=== PATIENT | male | born 1960 | race Caucasian/White ===

== ENCOUNTER 2021-03-21 20:06 | Emergency (ER) | payer OTHER, SELFPAY ==
[2021-03-21 20:29] VITALS: BP 144/85; PULSE 72; RESP 17; TEMP 38.8; O2SAT 96; BMI 31.9
--- NOTE | 2021-03-22 00:35 | XRR_ITS ---
PROCEDURE INFORMATION: Exam: XR Chest Exam date and time: 03/22/2021 12:35 AM Age: 61 years old Clinical indication: Cough and fever; Additional info: Fever cough TECHNIQUE: Imaging protocol: XR of the chest. Views: 1 view. COMPARISON: [facility] Chest 2 views 01/08/2017 7:56 AM FINDINGS: Lungs: Unremarkable. No consolidation. Pleural spaces: Unremarkable. No pleural effusion. No pneumothorax. Heart/Mediastinum: Unremarkable. No cardiomegaly. Bones/joints: Unremarkable. XR/XR chest 1V portable [id number] IMPRESSION: No acute findings.
--- NOTE | 2021-03-22 00:43 | ED_ITS ---
HPI - SOB/Dyspnea General: Chief Complaint: Shortness of Breath/Dyspnea Stated Complaint: Fever\Shortness\Loss of Taste Time Seen by Provider: 03/22/21 00:36 History of Present Illness: HPI Narrative: 61-year-old male patient comes in with nasal discharge, bad taste in his mouth, fatigue, and fever with body aches. Patient reports 2 weeks ago he got overheated and since then he has been unwell. Patient spouse about a week after he was ill became ill but has gotten better. Patient continues to feel ill today. Patient thinks that he just is not eating enough and drinking enough because of the bad taste he has in his mouth. Patient appears mildly unwell but not toxic. Patient denies any rash or nausea vomiting or constipation. Patient reports very poor appetite because everything tastes bad. Patient does continue to run a fever at times. Associated symptoms: Reports fever(s) Review of Systems General: Reports: 10 or more systems reviewed and unremarkable except in HPI and below Const: Reports: fever(s) and malaise ENMT: Reports: other (Change in taste) Resp: Reports: dyspnea Physical Exam Const: COMMON NORMALS: no acute distress and patient oriented x3 GENERAL APPEARANCE: cooperative HENMT: COMMON NORMALS: normocephalic, TM's normal bilaterally and Normal external nose present HEAD & SCALP: normal to inspection and normocephalic NOSE: Normal external nose present TYMPANIC MEMBRANE: TM's normal bilaterally MOUTH: Normal oral and palatal mucosa present THROAT: posterior oropharynx normal Eye: GENERAL EYE: appearance normal, both eyes and all related structures Neck/C-Spine: COMMON NORMALS: full ROM Lymph: LYMPHATIC: no lymphadenopathy noted Chest: COMMONS NORMALS: normal inspection of the chest Resp: COMMON NORMALS: normal respiratory effort EFFORT & INSPECTION: Yes able to speak in complete sentences Cardio: COMMON NORMALS: regular rate and regular rhythm RATE: regular rate RHYTHM: regular rhythm GI: COMMON NORMALS: non-tender : COMMON NORMALS: Yes no CVA tenderness BLADDER/KIDNEY EXAM: Yes no CVA tenderness Back/Pelvis: COMMON NORMALS: no CVA tenderness and thoracic and lumbar spine normal to inspection Extremity: COMMON NORMALS: normal to inspection Neuro: COMMON NORMALS: patient oriented x3 and moves all extremities Psych: COMMON NORMALS: mental status grossly normal and cooperative Skin: COMMON NORMALS: no rashes or lesions noted GENERAL SKIN EXAM: no rashes or lesions noted Course Vital Signs: Vital signs: Vital Signs Temperature 101.9 F H 03/21/21 20:29 Pulse Rate 72 03/21/21 20:29 Respiratory Rate 17 03/21/21 20:29 Blood Pressure 144/85 03/21/21 20:29 Pulse Oximetry 96 03/21/21 20:29 MDM - SOB/Dyspnea MDM Narrative: Medical decision making narrative: 61-year-old male patient comes in today with feeling poorly for the last 2 weeks after becoming overheated. Patient states that he just has not been able to recover from it and also reports a bad taste in his mouth. States he is unable to drink or eat due to this foul taste when he gets from everything except dark chocolate. On exam respirations are even lungs are clear to auscultation. Abdomen is soft nontender. Skin is warm and dry. Vital signs are normal except for elevated temperature of 101.9. Differential diagnosis includes but not limited to pneumonia, urinary tract infection, sepsis, tickborne illness, dehydration. Blood count was normal. CMP noted some elevation in creatinine at 1.4. Patient also had some elevation in his liver enzymes AST is and ALTs. Urinalysis was positive for red blood cells, white blood cells, and squamous cells. I suspect patient may have a upper respiratory infection as his had one last week, along with some dehydration. I cannot rule out a tickborne illness at this time though. Patient does not recall a tick bite in the last couple of weeks though. Patient was hydrated with 1 L of lactated Ringer's and had improvement so we repeated another liter. Patient was also given 1 g of Rocephin IV and will be started on doxycycline for coverage of upper respiratory infection and possible tickborne illness. Tick panel was sent. And blood cultures were sent. Patient did seem improved after IV fluids I reviewed that he had a make sure he drink plenty of water and electrolyte solution. Patient reported understanding agreed to plan and need for follow-up with primary care in 3 days for recheck. Lab Data: Labs: Lab Results 03/22/21 03/22/21 03/22/21 Range/Units 01:30 01:30 01:30 WBC 4.7 (4.0-10.0) 10^3/ uL RBC 5.21 (4.1-5.3) 10^6/u L Hgb 16.6 (11.7-16.6) g/dL Hct 48.2 (42.0-52.0) % MCV 92.5 (80-94) fL MCH 31.9 (28.0-34.0) pg MCHC 34.4 (30.0-36.0) g/dL RDW 12.2 (12.1-15.1) % Plt Count 271 (130-400) 10^3/c mm MPV 10.2 (7.4-10.4) fL Neut % (Auto) 74.8 % Lymph % (Auto) 18.6 % Collingsworth % (Auto) 5.1 % Eos % (Auto) 0.0 % Baso % (Auto) 1.1 % Neut # (Auto) 3.54 (1.8-7.7) 10^3/u L Lymph # (Auto) 0.9 (0.8-4.8) 10^3/u L Collingsworth # (Auto) 0.2 (0.2-0.9) 10^3/u L Eos # (Auto) 0.0 (0.0-0.8) 10^3/u L Baso # (Auto) 0.1 (0.0-0.1) 10^3/u L Nucleated RBC % (a uto) 0 % Nucleated RBCs # 0.0 /100WBC Sodium 138 (136-145) mmol/L Potassium 3.5 (3.5-5.1) mmol/L Chloride 98 (98-107) mmol/L Carbon Dioxide 24 (22-29) mmol/L Anion Gap 19.5 H (5-19) BUN 17 (8-23) mg/dL Creatinine 1.4 H (0.7-1.2) mg/dL GFR Calculation 51.4 L (90-130) mL/min Glucose 119 H (65-115) mg/dL Calculated Osmolal ity 289 (285-295) mOsm/k g Lactic Acid 1.9 (0.5-2.2) mmol/L Calcium 9.3 (8.5-10.5) mg/dL Total Bilirubin 0.5 (0.15-1.2) mg/dL AST 248 H (0-40) U/L ALT 292 H (0-41) U/L Alkaline Phosphata se 123 (40-130) IU/L Total Protein 7.8 (6.6-8.7) g/dL Albumin 4.3 (3.5-5.2) g/dL Globulin 3.5 (1.3-4.6) g/dL Urine Color (Yellow) Urine Appearance (CLEAR) Urine pH (5-7) Ur Specific Gravit y (1.005-1.030) Urine Protein (Negative) Urine Glucose (UA) (Normal) Urine Ketones (Negative) Urine Blood (Negative) Urine Nitrate (Negative) Urine Bilirubin (Negative) Urine Urobilinogen (Negative) mg/dL Ur Leukocyte Kari ase (Negative) Urine RBC (0-2) /hpf Urine WBC (0-5) /hpf Ur Squamous Epith Cells (0-5) /hpf Amorphous Sediment Urine Bacteria (NONE) /hpf Urine Mucus /hpf Influenza Type A A g (Negative) Influenza Type B A g (Negative) SARS-CoV-2 Ag (Rap id) (Negative) Group A Strep Rapi d (Negative) 03/22/21 03/22/21 03/22/21 Range/Units 01:45 01:45 01:45 WBC (4.0-10.0) 10^3/ uL RBC (4.1-5.3) 10^6/u L Hgb (11.7-16.6) g/dL Hct (42.0-52.0) % MCV (80-94) fL MCH (28.0-34.0) pg MCHC (30.0-36.0) g/dL RDW (12.1-15.1) % Plt Count (130-400) 10^3/c mm MPV (7.4-10.4) fL Neut % (Auto) % Lymph % (Auto) % Collingsworth % (Auto) % Eos % (Auto) % Baso % (Auto) % Neut # (Auto) (1.8-7.7) 10^3/u L Lymph # (Auto) (0.8-4.8) 10^3/u L Collingsworth # (Auto) (0.2-0.9) 10^3/u L Eos # (Auto) (0.0-0.8) 10^3/u L Baso # (Auto) (0.0-0.1) 10^3/u L Nucleated RBC % (a uto) % Nucleated RBCs # /100WBC Sodium (136-145) mmol/L Potassium (3.5-5.1) mmol/L Chloride (98-107) mmol/L Carbon Dioxide (22-29) mmol/L Anion Gap (5-19) BUN (8-23) mg/dL Creatinine (0.7-1.2) mg/dL GFR Calculation (90-130) mL/min Glucose (65-115) mg/dL Calculated Osmolal ity (285-295) mOsm/k g Lactic Acid (0.5-2.2) mmol/L Calcium (8.5-10.5) mg/dL Total Bilirubin (0.15-1.2) mg/dL AST (0-40) U/L ALT (0-41) U/L Alkaline Phosphata se (40-130) IU/L Total Protein (6.6-8.7) g/dL Albumin (3.5-5.2) g/dL Globulin (1.3-4.6) g/dL Urine Color Yellow (Yellow) Urine Appearance Clear (CLEAR) Urine pH 5 (5-7) Ur Specific Gravit y 1.020 (1.005-1.030) Urine Protein Trace (Negative) Urine Glucose (UA) Norm (Normal) Urine Ketones Negative (Negative) Urine Blood 2+ H (Negative) Urine Nitrate Negative (Negative) Urine Bilirubin Neg (Negative) Urine Urobilinogen Norm (Negative) mg/dL Ur Leukocyte Kari ase Negative (Negative) Urine RBC 0-4 H (0-2) /hpf Urine WBC 0-4 H (0-5) /hpf Ur Squamous Epith Cells 0-4 H (0-5) /hpf Amorphous Sediment Not Reportable Urine Bacteria Trace (NONE) /hpf Urine Mucus 4+ /hpf Influenza Type A A g Negative (Negative) Influenza Type B A g Negative (Negative) SARS-CoV-2 Ag (Rap id) (Negative) Group A Strep Rapi d Negative (Negative) 03/22/21 Range/Units 01:45 WBC (4.0-10.0) 10^3/ uL RBC (4.1-5.3) 10^6/u L Hgb (11.7-16.6) g/dL Hct (42.0-52.0) % MCV (80-94) fL MCH (28.0-34.0) pg MCHC (30.0-36.0) g/dL RDW (12.1-15.1) % Plt Count (130-400) 10^3/c mm MPV (7.4-10.4) fL Neut % (Auto) % Lymph % (Auto) % Collingsworth % (Auto) % Eos % (Auto) % Baso % (Auto) % Neut # (Auto) (1.8-7.7) 10^3/u L Lymph # (Auto) (0.8-4.8) 10^3/u L Collingsworth # (Auto) (0.2-0.9) 10^3/u L Eos # (Auto) (0.0-0.8) 10^3/u L Baso # (Auto) (0.0-0.1) 10^3/u L Nucleated RBC % (a uto) % Nucleated RBCs # /100WBC Sodium (136-145) mmol/L Potassium (3.5-5.1) mmol/L Chloride (98-107) mmol/L Carbon Dioxide (22-29) mmol/L Anion Gap (5-19) BUN (8-23) mg/dL Creatinine (0.7-1.2) mg/dL GFR Calculation (90-130) mL/min Glucose (65-115) mg/dL Calculated Osmolal ity (285-295) mOsm/k g Lactic Acid (0.5-2.2) mmol/L Calcium (8.5-10.5) mg/dL Total Bilirubin (0.15-1.2) mg/dL AST (0-40) U/L ALT (0-41) U/L Alkaline Phosphata se (40-130) IU/L Total Protein (6.6-8.7) g/dL Albumin (3.5-5.2) g/dL Globulin (1.3-4.6) g/dL Urine Color (Yellow) Urine Appearance (CLEAR) Urine pH (5-7) Ur Specific Gravit y (1.005-1.030) Urine Protein (Negative) Urine Glucose (UA) (Normal) Urine Ketones (Negative) Urine Blood (Negative) Urine Nitrate (Negative) Urine Bilirubin (Negative) Urine Urobilinogen (Negative) mg/dL Ur Leukocyte Kari ase (Negative) Urine RBC (0-2) /hpf Urine WBC (0-5) /hpf Ur Squamous Epith Cells (0-5) /hpf Amorphous Sediment Urine Bacteria (NONE) /hpf Urine Mucus /hpf Influenza Type A A g (Negative) Influenza Type B A g (Negative) SARS-CoV-2 Ag (Rap id) Negative (Negative) Group A Strep Rapi d (Negative) Discharge Plan Discharge Patient Disposition: Home Clinical Impression: Dehydration, URI, acute Condition: Stable Prescriptions: New doxycycline monohydrate 100 mg capsule 100 mg PO Q12H 10 Days Qty: 20 RF: 0 Discharge Orders: Discharge ED (Routine); Ordered 03/22/21 Ordered By: Sebastián Vee Referrals: Napoleon Keyes DO [Family Provider] - Discharge Diet: Usual diet Discharge Activity: Increase activity as tolerated Patient Instructions: Dehydration (ED), Opioid Safety Activity Restrictions/Additional Instructions: Home and rest. Drink plenty of fluids. Take antibiotic as directed for the next 7 days. Follow-up with primary care in 3 days for recheck of blood work. Return to the emergency department for worsening symptoms or new concerns. Coding Level of Care Code ED Machine Biller for Randy Fwd Exam Comprehensive
[2021-03-22] MEDS: lactated ringers 1,000 ML 999 ML IV ×2 (01:42→03:42)
[2021-03-22 01:48] LABS: Basophils # 0.1 10^3/uL (0.0-0.1); Basophils % 1.1 %; Hematocrit 48.2 % (42.0-52.0); Hemoglobin 16.6 g/dL (11.7-16.6); Lymphocytes # 0.9 10^3/uL (0.8-4.8); Lymphocytes % 18.6 %; Mean Corpuscular HGB Conc 34.4 g/dL (30.0-36.0); Mean Corpuscular Hemoglobin 31.9 pg (28.0-34.0); Mean Corpuscular Volume 92.5 fL (80-94); Mean Platelet Volume 10.2 fL (7.4-10.4); Monocytes # 0.2 10^3/uL (0.2-0.9); Monocytes % 5.1 %; Neutrophils # 3.54 10^3/uL (1.8-7.7); Neutrophils % 74.8 %; Nucleated Red Blood Cells % 0 %; Platelet Count 271 10^3/cmm (130-400); Red Blood Count 5.21 10^6/uL (4.1-5.3); Red Cell Distribution Width 12.2 % (12.1-15.1); White Blood Count 4.7 10^3/uL (4.0-10.0)
[2021-03-22 02:10] LABS: Add Urine Microscopic? YES; Bilirubin Urine Neg (Negative); Blood Urine 2+ (Negative); Glucose Urine UA Norm (Normal); Ketones Urine Negative (Negative); Leukocyte Esterase Urine Negative (Negative); Nitrate Urine Negative (Negative); Protein Urine Trace (Negative); Urine Appearance Clear (CLEAR); Urine Color Yellow (Yellow); Urobilinogen Urine Norm (Negative); pH Urine 5 (5-7)
[2021-03-22 02:12] LABS: Rapid Strep A Test Negative (Negative)
[2021-03-22 02:22] LABS: Add Urine Culture? No; Bacteria Urine TRACE /hpf; Mucus Urine 4+ /hpf; RBC Urine 0-4 /hpf (0-2); Squamous Epithelial Cell Urine 0-4 /hpf (0-5); WBC Urine 0-4 /hpf (0-5)
[2021-03-22 02:24] LABS: Influenza A by IFA Negative (Negative); Influenza B by IFA Negative (Negative); SARS Covid-2 Antigen Negative (Negative)
[2021-03-22 03:04] LABS: Lactic Sepsis W/Reflex 1.9 mmol/L (0.5-2.2)
[2021-03-22 03:05] LABS: Alanine Aminotransferase 292 U/L (0-41); Albumin Level 4.3 g/dL (3.5-5.2); Alkaline Phosphatase 123 IU/L (40-130); Anion Gap 19.5 (5-19); Aspartate Amino Transferase 248 U/L (0-40); Blood Urea Nitrogen 17 mg/dL (8-23); Calcium 9.3 mg/dL (8.5-10.5); Carbon Dioxide 24 mmol/L (22-29); Chloride 98 mmol/L (98-107); Creatinine Clr Calc Pharmacy 61.2405; Globulin 3.5 g/dL (1.3-4.6); Glomerular Filtration Rate 51.4 mL/min (90-130); Glucose 119 mg/dL (65-115); Osmolality Calculated 289 mOsm/kg (285-295); Potassium 3.5 mmol/L (3.5-5.1); Sodium 138 mmol/L (136-145); Total Bilirubin 0.5 mg/dL (0.15-1.2); Total Protein 7.8 g/dL (6.6-8.7)
[2021-03-22 03:41] VITALS: BP 145/77; PULSE 64; RESP 17; O2SAT 96
[2021-03-22] MEDS: dexamethasone 10 mg/mL INJ IVP (03:42)
[2021-03-22] MEDS: cefTRIAXone 1,000 MG in sodium chloride 0.9% (plus) 50 ML 100 MG IV (03:42)
[2021-03-22 04:58] VITALS: BP 136/71; PULSE 77; RESP 18; O2SAT 96
[2021-03-22 05:13] VITALS: BP 130/85; PULSE 88; RESP 18; TEMP 36.6; O2SAT 98
[2021-03-25 12:23] LABS: Lyme AB Screen <0.90 index
[2021-03-28 17:23] LABS: RMSF IGG DETECTED; RMSF IGM NOT DETECTED
[2021-03-28 17:57] LABS: E. Chaffeensis AB IGG <1:64; E. Chaffeensis AB IGM <1:20
== END 2021-03-22 05:16 | disposition home or self-care (01) ==
PROVIDERS: Emergency Provider Nurse Practitioner Family; Family Provider Internal Medicine
DX: J06.9 Acute upper respiratory infection, unspecified (principal); E86.0 Dehydration
CPT/HCPCS: 71045; 80053; 81001; 83605; 85025; 86618; 86666; 86757; 87040; 87081; 87426; 87804; 87880; 96361; 96365; 96375; 99284; J0696; J1100

== ENCOUNTER 2021-12-03 08:56 | Inpatient (IN) | payer OTHER, SELFPAY ==
[2021-12-03] VITALS (31 sets, daily range): BP systolic 110–157; BP diastolic 69–98; PULSE 50–81; RESP 12–32; TEMP 36.2–36.9; O2SAT 95–100; BMI 32.3
--- NOTE | 2021-12-03 09:01 | ECG_ITS ---
[facility] Test Date: 2021-12-03 Pat Name: Toi Henriquez Department: Room: 111 Gender: Male Sales Project Manager: : 1960 Requested By: Dimas Baker Order Number: [id number] Tip MD: Vern Merchant M.D. Measurements Intervals Rotan Rate: 89 P: ND: QRS: 41 QRSD: 108 T: 2 QT: 367 QTc: 449 Interpretive Statements ATRIAL FIBRILLATION POSSIBLE RIGHT VENTRICULAR CONDUCTION DELAY [RSR (QR) IN V1/V2] ACUTE NV No previous ECG available for comparison Electronically Signed On 12-03-2021 16:00:01 AIRCRAFT STRUCTURAL REPAIR MECHANIC by Vern Merchant M.D. [email or web address]
--- NOTE | 2021-12-03 09:04 | W.ED.CHESTPA ---
HPI - Chest Pain General: Chief Complaint: Dizziness Stated Complaint: STEMI ALERT Time Seen by Provider: 12/03/21 08:58 Source: patient and EMS Mode of arrival: EMS Limitations: no limitations History of Present Illness: Patient has dizziness and general malaise starting around seven thirty this morning. Patient denies any chest pain. Denies any other symptoms. Pertinent past history: other (Hypertension) Timing of current episode: constant Onset: during rest Relieving factors: nothing Exacerbating factors: nothing Associated symptoms: Reports diaphoresis; Deny abdominal pain, dyspnea, fever(s), leg edema, nausea, palpitations, sense of impending doom, syncope or vomiting Treatment prior to arrival: aspirin and oxygen Review of Systems Const: Reports: diaphoresis; Denies: fever(s) Eyes: Denies: change in vision ENMT: Denies: throat pain Card: Denies: chest pain, palpitations, irregular heart rhythm, edema or syncope Resp: Denies: dyspnea GI: Denies: abdominal pain, nausea or vomiting : Denies: flank pain Musc: Denies: neck pain or back pain Skin/Breast: Denies: rash or pruritus Neuro: Denies: headache(s) or numbness in extremities Psych: Denies: anxiety Andres/Lymph: Denies: enlarged lymph nodes PFSH ED Supplemental PFSH Information: Possible history of hypertension Physical Exam Const: COMMON NORMALS: no acute distress, patient oriented x3, no limitations and well nourished EXAM LIMITATIONS: altered mental status GENERAL APPEARANCE: cooperative HENMT: COMMON NORMALS: normocephalic and atraumatic HEAD & SCALP: normocephalic and atraumatic FACE & SINUS: normal facial exam Eye: COMMON NORMALS: EOMs intact bilaterally Neck/C-Spine: COMMON NORMALS: full ROM, no lymphadenopathy, supple and no meningeal signs GENERAL: Yes normal visual inspection Lymph: LYMPHATIC: no lymphadenopathy noted Chest: COMMONS NORMALS: normal inspection of the chest and normal palpation of entire chest wall CHEST: No Ecchymosis present and No rash Resp: COMMON NORMALS: normal respiratory effort, No retractions and clear to auscultation bilaterally EFFORT & INSPECTION: No respiratory distress AUSCULTATION: clear to auscultation bilaterally Cardio: COMMON NORMALS: regular rhythm and Peripheral pulses 2+ throughout JUGULAR VENOUS DISTENTION: no JVD RHYTHM: regular rhythm PERIPHERAL PULSES: Peripheral pulses 2+ throughout OTHER: Bradycardia GI: COMMON NORMALS: Normal to inspection, nondistended, normoactive bowel sounds present and non-tender : COMMON NORMALS: Yes no CVA tenderness BLADDER/KIDNEY EXAM: Yes no CVA tenderness Back/Pelvis: COMMON NORMALS: no CVA tenderness Extremity: COMMON NORMALS: normal to inspection, full ROM and capillary refill normal Neuro: COMMON NORMALS: patient oriented x3, CN's II-XII intact bilaterally, no focal motor deficits and no sensory deficits noted MENINGEAL SIGNS: Yes no meningeal signs Psych: COMMON NORMALS: mental status grossly normal and Normal thought process present THOUGHT PROCESS: Normal thought process present Skin: COMMON NORMALS: no rashes or lesions noted and no wounds GENERAL SKIN EXAM: no rashes or lesions noted OTHER: No diaphoresis now MDM - Chest Pain Medical Decision Making Inferior STEMI by EKG that was transmitted by EMS. Lab Data : 12/03/21 08:49 12/03/21 08:49 EKG Data EKG 1: I personally reviewed and interpreted this EKG as follows: EKG interpretation date: 12/03/21 EKG interpretation time: 09:05 Prior EKG tracings: not available for review Interpretation: Sinus bradycardia with heart rate of forty-three. [address] segment elevation in leads II, III and aVF consistent with inferior injury. Normal axis. Normal VA intervals Other Data Patient had aspirin 324 mg upon arrival by EMS. Critical Care Time Critical Care Time: Critical Care Time: Yes Total Critical Care Time: 30 Attestation: City Wellness Coordinator in ER when patient arrived. He states he will take the patient to Contract Runner. Yes patient get six hundred Plavix p.o. and 4000 units heparin IV Discharge Plan Discharge Patient Disposition: Admitted As Inpatient Clinical Impression: Acute ST elevation myocardial infarction (STEMI) of inferior wall Condition: Stable Coding Level of Care Code ED Continuous Mining Machine Lode Miner for Chg Fwd Exam Comprehensive
[2021-12-03] MEDS: clopidogrel 300 mg Tablet 600 MG PO (09:05)
[2021-12-03] MEDS: heparin 5,000 unit/mL INJ 1 mL 4000 UNIT IVP (09:06)
--- NOTE | 2021-12-03 09:07 | XACV_ITS ---
Ht: 173 cm Wt: 91 kg BSA: 2.11 m2 Gender: Male : 1960 Any Known Allergies: No known allergies Exam Priority: Routine Procedure(s): Procedure Description: Diagnostic procedure Procedure Description: PCI procedure Procedure Description: Drug Eluting Coronary Stent Procedure Description: Miscellaneous Procedure Description: ACT Procedure Description: Coronary Angiography Diagnostic Cath Status: Emergency Diagnostic Findings * INDICATION: Acute inferior wall ST elevation GA. * Proximal Right Coronary Artery: total thrombotic occlusion, SHELBY: 0 flow. * Left Main has no disease. * Left Anterior Descending has no disease. * Circumflex has no disease. * Coronary angiography shows right dominance. PCI Status: Emergency PCI Indication: STEMI - Immediate PCI for STEMI Interventional Findings * PROCEDURE NOTE: We engaged RCA with JR4 guide catheter. IV heparin was administered to maintain ACT over 250 Seconds. 0.014 run-through guidewire was used to cross the proximal RCA total thrombotic occlusion. We then predilated the stenosis with 2.5 x 12 mm noncompliant balloon. This was followed by placement of 3.5 x 18 mm resolute Paris drug-eluting stent. At this time final angiogram was performed that showed excellent stent expansion, no residual stenosis and SHELBY-3 flow. Guidewire and guide catheter were removed. Patient left the Chisel Worker in a stable condition.. * Proximal Right Coronary Artery: 100% stenosis treated with a AB TREK 2.50X12 RX BALLOON, and HILARIO Steen CURTIS 3.5X18 CAILIN. 0% residual stenosis, SHELBY: 3 flow. Conclusions 1. There is total thrombotic occlusion of RCA, this is the culprit lesion for the ST elevation GA. 2. Proximal Right Coronary Artery was treated with a Balloon, and Drug Eluting Stent. Recommendations * Aspirin and Plavix for atleast 1 year. * High intensity statin therapy. * Outpatient cardiology follow up in 7-10 days. Interventional RX Recommendation: PCI w/o planned CABG Diagnostic RX Recommendation: PCI w/o planned CABG Anticoagulation: Heparin Pressures Phase:Rest AO : 57 / 42 ( 51 ) @ 9:30:00 AM 155 / 76 ( 103 ) @ 9:39:00 AM 104 / 62 ( 80 ) @ 9:40:00 AM Clinical Evaluation EBL: 5mL-10mL Procedural Details Pre-Procedure Time Out. Identified patient by full name and date of as verbalized by the patient/guarantor. Does the consent match the physician's order: Yes. Accurate & Complete Informed Consent: N/A Emergent. Inpatient/Outpatient History & Physical on Chart: N/A Emergent. If H&P is completed, is and addenduem needed: N/A Emergent; If yes, is the addendum complete: N/A Emergent. Visualize and Verify Site with Patient/Guarantor: N/A. Relevant Radiology Images available: N/A Emergent. Pre-op teaching completed and patient verbalized understanding. The risks, benefits, and alternatives of sedation and/or procedure were discussed by physician. The patient agrees to continue. Procedure started. [facility] Clinical Fraility Score: 3: Managing Well. Chisel Worker Indications: STEMI. Chest Pain Symptom Assessment: Typical Angina Symptoms. Cardiovascular Instability: No. Stable. Correct patient, site and procedure confirmed by cath team. Current diagnosis: STEMI. PERRLA. Strong, equal hand clam picker bilaterally. Lungs clear x 5 lobes. IV Site on Arrival: 20 gauge in the left anticubital. IV Fluids: 0.9% NaCl at KVO. 0 mL infused prior to laborer filter plant. Pre Procedural Pulses: bilateral radial was 3+. Pre Procedural Pulses: bilateral posterior tibial was Doppled. Pre Procedural Pulses: bilateral dorsalis pedis was Doppled. Oxygen started at 3liters/min via nasal canula. right groin was prepped with chloroprep then draped in the usual sterile fashion. right radial was prepped with chloroprep then draped in the usual sterile fashion. Physician notified. Baseline sample Acquired. HR: 44 BPM. Patient's family unavailable. Equipment: 5F - Femoral. Equipment: 5F - Radial. Equipment: 6F - Femoral. Equipment: 6F - Radial. Heparinized Saline (2 units/mL), 1000 mL bag. Cardiac Cath Pack. ACIST Manifold Kit Model BT 2000. AP pads are on. Physician arrived. Physician scrubbed in. Immediate Pre-Procedure Time Out. Correct Patient: Yes; Correct Procedure: Yes; Correct Site: Yes; Correct Patient Position: Yes; Correct Supplies: Yes; Dried Flammable Prep: Yes; Blood Products Available: N/A Emergent;. Lidocaine 1% infiltrated to the right radial. Arterial access obtained. A 5 welsh TIG catheter in over wire. Multiple views taken of left coronary artery. Catheter redirected to the RCA. Unable to cannulate the RCA. Inventory is CRD 6FR JR 4 GUIDE 100cm. 6 welsh JR 4 guide catheter was inserted over the wire. Patient received 324 mg Aspirin PO, 600 mg Plavix PO, and 4000 units of Heparin SUB Q in ER prior to arrival. Runthrough guidewire was advanced through the guide catheter to lesion in the prox RCA. Current Diagnosis : STEMI. Guidewire advanced across lesion. Inflation number : 1 A AB TREK 2.50X12 RX BALLOON was prepped and advanced across the Prox RCA , then inflated to 12 RYAN for 0:14 seconds. Inflation number: 2 The AB TREK 2.50X12 RX BALLOON was reinflated across the Prox RCA, to 12 RYAN for 0:12 seconds. Angiography performed. Balloon out over the wire. Guideline inserted. Angiography performed. Inflation Number : 3 A HILARIO Steen CURTIS 3.5X18 CAILIN -Lot Number# [id number] was prepped and advanced across the Prox RCA. The stent was deployed at 16 RYAN for 0:23 seconds. EXP 10-15-24. Angiography performed. Stent balloon out over the wire. Angiography performed. Guideline removed. Angiography performed. Wire removed. Results checked. ACT drawn. Results 206 seconds. Therapeutic limits - pre-heparin administration 90-150 seconds and monitoring heparin during a vascular procedure >250 seconds. Guide catheter out. A TR Band was successful obtaining hemostatsis at the Right Radial artery insertion site. TR band placed. Hemostasis obtained. Post Procedure: Pulses reassessed and unchanged. PERRLA. Strong, equal hand clam picker bilaterally. No VTE prophylaxis required. Medication's Wasted: Lidocaine 1% = 18 mL. Medication's Wasted: Heparin = 4000 units. Total IV fluids: 400 mL. Fluoro: 7:08. Contrast type used: Visipaque 320 mgI/mL, 200 mL bottle. [id number]. PCI Indication: STEMI. Post-op diagnosis: STEMI of RCA, Thrombotic occlusion. Complications: None. Estimated blood loss: 5mL-10mL. Responsiveness - Normal response to verbal stimuli; alert and oriented, PERRLA. Airway - Unaffected, no intervention required; spontaneous ventilation. Circulation: W/N/L, pulses unchanged. Nausea/Vomiting: N/A. Procedure completed. Patient transferred by bed to 1st floor. Access Site Site: Right Radial artery Sheath Size: 6 Fr Hemostasis Method: TR Band Hemostasis Success: Successful Procedure Medications Start: 9:22 AM Stop: 9:22 AM Medication: Versed Amount: 1 mg Route: I.V. Start: 9:22 AM Stop: 9:22 AM Medication: Heparin Amount: 5000 units Route: I.V. Start: 9:29 AM Stop: 9:29 AM Medication: Heparin Amount: 5000 units Route: I.V. Start: 9:38 AM Stop: 9:38 AM Medication: Aggrastat 12.5 mg/250 mL Amount: 46 ml Route: I.V. bolus Start: 9:38 AM Stop: 9:38 AM Medication: Aggrastat 12.5 mg/250 mL Amount: 16.6 ml/hr Route: I.V. drip Start: 9:43 AM Stop: 9:43 AM Medication: Heparin Amount: 2000 units Route: I.V. I, the attending physician, have reviewed and verified all procedure medications. Yes, all medications given per verbal order Report Signatures Finalized by Vern Merchant MD on 12/08/2021 10:44 AM
--- NOTE | 2021-12-03 09:09 | P.HP_ITS ---
Providers/Chief Complaint Admitting Physician: Vern Merchant MD Primary Care Provider: Napoleon Keyes DO Chief Complaint: STEMI ALERT History of Present Illness Toi Henriquez is a 61 year old male with past medical history of hypertension who has presented with a 1 hour symptoms of feeling sweaty and having dizziness. He denies chest pain. EKG is consistent with inferior wall ST elevation PR. Coronary angiogram was emergently performed that showed total thrombotic occlusion of proximal RCA. He underwent successful revascularization with CAILIN x1 that resulted in resolution of ST changes. Review of Systems Narrative: CONSTITUTIONAL: Feeling sweaty and clammy HEENT: Normocephalic, atraumatic.[] RESPIRATORY: No cough, sputum, hemoptysis or wheezing.[] CARDIOVASCULAR: No shortness of breath, chest pain, PND, orthopnea, lower extremity edema, presyncope or syncope. [] GI: no nausea vomiting diarrhea. [] PHYSIOTHERAPY PRACTICE MANAGER: Has dizziness MUSCULOSKELETAL: No knee or joint pain or rashes. [] Medications/Allergies Allergies Allergy/AdvReac Type Severity Reaction Status Date / Time No Known Allergies Allergy Verified 03/21/21 20:32 PFSH Acute PFSH: Medical History Hypertension Physical Exam Narrative: GENERAL: Patient is alert, awake and oriented x3. NECK: No jugular vein distension. [] HEENT: No cyanosis. No icterus. No pallor. [] HEART: Regular S1 and S2. No murmur, rub or gallop. [] LUNGS: Clear to auscultate bilaterally. [] ABDOMEN: Soft, nontender and nondistended. Positive bowel sounds. No guarding, rebound or tenderness. [] CENTRAL NERVOUS SYSTEM: Grossly nonfocal. [] EXTREMITIES: Lower extremities with 1+ edema bilaterally. Pulses palpable in the lower extremities, both dorsalis pedis and posterior tibial. [] Data : 12/03/21 08:49 12/03/21 08:49 A&P Assessment and plan (1) Acute ST elevation myocardial infarction (STEMI) of inferior wall: Status: Acute (2) Hypertension: Status: Acute (3) CKD (chronic kidney disease): Status: Acute Plan Patient has presented with inferior wall ST elevation PR. Symptoms were not typical as he was not having chest pain however was dizzy and diaphoretic. Emergent coronary angiogram showed proximal total thrombotic occlusion of RCA. He underwent successful revascularization with CAILIN x1. Continue aspirin and Plavix daily for at least 1 year Order echocardiogram IV fluids as patient likely has CKD. Aggrastat drip for 4 hours Attestations Medical Necessity Statement*: Care expected to cross 2 midnights. Patient presented with acute ST elevation PR and underwent successful revascularization of the RCA with CAILIN x1 Coding Level of Care Code Acute Drill Operator for Randy Scott Diagnoses Acute ST elevation myocardial infarction (STEMI) of inferior wall I21.19 Hypertension I10 CKD (chronic kidney disease) N18.9
[2021-12-03 09:20] LABS: Basophils # 0.1 10^3/uL (0.0-0.1); Basophils % 1.1 %; Eosinophils # 0.4 10^3/uL (0.0-0.8); Eosinophils % 3.4 %; Hematocrit 46.8 % (42.0-52.0); Hemoglobin 15.7 g/dL (11.7-16.6); Lymphocytes # 5.5 10^3/uL (0.8-4.8); Lymphocytes % 45.6 %; Mean Corpuscular HGB Conc 33.5 g/dL (30.0-36.0); Mean Corpuscular Hemoglobin 31.4 pg (28.0-34.0); Mean Corpuscular Volume 93.6 fl (80-94); Mean Platelet Volume 10.1 fL (7.4-10.4); Monocytes # 0.9 10^3/uL (0.2-0.9); Monocytes % 7.6 %; Neutrophils # 5.02 10^3/uL (1.8-7.7); Nucleated Red Blood Cells % 0 %; Platelet Count 439 10^3/cmm (130-400); Red Cell Distribution Width 12.6 % (12.1-15.1); White Blood Count 11.9 10^3/uL (4.0-10.0)
[2021-12-03 09:27] LABS: Troponin(5th) Baseline 32 ng/L (0-15)
[2021-12-03 09:35] LABS: Anion Gap 18.8 (5-19); Blood Urea Nitrogen 22 mg/dL (8-23); Calcium 9.1 mg/dL (8.5-10.5); Carbon Dioxide 23 mmol/L (22-29); Chloride 99 mmol/L (98-107); Glomerular Filtration Rate 51.4 mL/min (90-130); Glucose 205 mg/dL (65-115); NT Pro B Type Natriuretic Pept 164 pg/mL (0-125); Osmolality Calculated 293 mOsm/kg (285-295); Potassium 3.8 mmol/L (3.5-5.1); Sodium 137 mmol/L (136-145)
[2021-12-03 09:59] LABS: Slide Review Slide Review Perform
--- NOTE | 2021-12-03 10:16 | USCV_ITS ---
Toi Henriquez Age: 61 Gender: M : 1960 Exam Date: 12/03/2021 10:41 Ordering Phys: Vern Merchant M.D ([email or web address]) Technologist: FREDDY [place] [facility] [place]: POST STEMI BP: 119 / 83 HR: 123 Rhythm: Atrial fibrillation Technical Quality: Adequate MEASUREMENTS (Male / Female) Normal Values 2D ECHO LV Diastolic Diameter PLAX 4.1 cm 4.2 - 5.9 / 3.9 - 5.3 cm LV Systolic Diameter PLAX 2.1 cm IVS Diastolic Thickness 1.6 cm 0.6 - 1.0 / 0.6 - 0.9 cm IVS Systolic Thickness 2.5 cm LVPW Diastolic Thickness 1.4 cm 0.6 - 1.0 / 0.6 - 0.9 cm LVPW Systolic Thickness 1.8 cm LVOT Diameter 2.0 cm LV Ejection Fraction 2D Teich 79.6 % LV Ejection Fraction MOD 2C 63.0 % LV Ejection Fraction 2C AL 63.3 % LA Diameter 2.8 cm LA Width 3.3 cm LA Height 4.2 cm RA Width 3.0 cm RA Height 3.7 cm Aorta at Sinotubular Diameter 2.8 cm M-MODE MV E Point Septal Separation 0.4 cm DOPPLER AV Peak Velocity 149.0 cm/s LVOT Peak Velocity 90.0 cm/s AV Area Cont Eq vti 2.0 cm squared AV Area Cont Eq pk 1.9 cm squared MV Peak Velocity 97.0 cm/s MV Area PHT 3.6 cm squared MV E' Velocity 117.0 cm/s TR Peak Velocity 121.3 cm/s TR Peak Gradient 5.9 mmHg TR Mean Velocity 74.6 cm/s TR Mean Gradient 2.6 mmHg TR Velocity Time Integral 19.0 cm TV Peak E Velocity 49.0 cm/s Right Atrial Pressure 3.0 mmHg Pulmonary Artery Systolic Pressu 8.9 mmHg PV Peak Velocity 116.0 cm/s RV Acceleration Time 0.1 s RV Ejection Time 0.3 s RV AcT/ET 0.2 FINDINGS Left Ventricle Normal left ventricular size. LV systolic function is normal with EF of 60-65%. No regional wall motion abnormalities. Diastolic function is indeterminate because of atrial fibrillation Right Ventricle The right ventricle is normal in size and function. Right Atrium The right atrium is normal in size. Left Atrium The left atrium is normal in size. Mitral Valve Structurally normal mitral valve without significant stenosis or prolapse. There is no mitral regurgitation. Aortic Valve Structurally normal aortic valve without significant sclerosis or stenosis. There is no aortic regurgitation. Tricuspid Valve Structurally normal tricuspid valve without significant stenosis . Mild tricuspid regurgitation. Pulmonary artery systolic pressure is normal. Pulmonic Valve Structurally normal pulmonic valve without significant stenosis. There is no pulmonic regurgitation. Pericardium Normal pericardium without effusion. Aorta Normal ascending aorta dimension. CONCLUSIONS LV systolic function is normal with EF of 60-65% Diastolic function is indeterminate because of atrial fibrillation Mild tricuspid regurgitation No comparison studies are available Vern Merchant MD (Electronically Signed) Final Date: 06 December 2021 10:12 S
--- NOTE | 2021-12-03 10:26 | ECG_ITS ---
[facility] Test Date: 2021-12-03 Pat Name: Toi Henriquez Department: Room: 111 Gender: Male Manager Dialysis: : 1960 Requested By: Vern Merchant Order Number: [id number] Tip MD: Vern Merchant M.D. Measurements Intervals [place] Rate: 43 P: [place]: QRS: 60 QRSD: 135 T: 81 QT: 431 QTc: 366 Interpretive Statements UNCERTAIN REGULAR RHYTHM INTRAVENTRICULAR CONDUCTION DELAY [130+ ms QRS DURATION] INFERIOR MYOCARDIAL INFARCTION , POSSIBLY ACUTE [40+ ms Q WAVE AND/OR ST/T ABNORMALITY IN II/aVF] ACUTE IN No previous ECG available for comparison Electronically Signed On 12-03-2021 16:00:24 VALVE MAKER by Vern Merchant M.D. [id number]
--- NOTE | 2021-12-03 10:26 | XR_ITS ---
WS: [id number] Portable AP semiupright chest, 12/03/2021 Clinical Data: Need for O2 Comparison: Portable chest, 03/22/2021. Findings: No nodules, masses or effusions are seen. The heart is normal. The pulmonary vascularity is not increased. No pneumonia or pneumothorax is seen. Monitor leads are on the chest wall. XR/XR chest 1V portable [id number] Impression: Negative chest.
[2021-12-03] MEDS: sodium chloride 0.9% 1,000 ML 100 ML IV ×2 (10:30→19:41)
--- NOTE | 2021-12-03 10:37 | PC.NURSE ---
patient received from laborer cook house Bedside report from Anamaria RN patient Brought in wheelchair Right radial Tr Band in place no hematoma noted patient is shivering placed warm blankets and turned up heat family at bedside family reported to this nurse patient is reporting increased numbness in hands and feet No reports of chest pain upon assessment patient shake arousable patient in creased RR O2 84% o2 placed EKG performed Dr Merchant notified and to bedside for assessment Aggrastat stopped upon DrJade arrival instructions to obtain EKG; Dr valverde consulted
--- NOTE | 2021-12-03 10:53 | PC.NURSE ---
patient has stabilized after aggrastat stopped HR and blood pressure has remained stable throughout
[2021-12-03] MEDS: perflutren protein-a microsphr 0.22 mg/mL SDV 3 mL IV (11:11)
--- NOTE | 2021-12-03 12:31 | W.PM.EVENTAC ---
Event Note Event Note: Asked to see patient briefly secondary to symptoms after angiogram and primary physician with emergent patient. Mr. Henriquez comes back from an angiogram with shivering, upper and lower extremity numbness and tingling. He had not had any slurred speech. He had received some sedation with Versed during his angiogram according to nursing. Nursing had checked his vitals and temperature was slightly low. Rewarming with blankets was occurring. When I evaluated him he was already somewhat better. He was conversant alert and aware of all of his surroundings. He reported that the numbness and tingling in his hands had gone away, and only had some mild persistence in his feet. He had a completely normal neurologic exam. Entry site for angiogram was right radial wrist without significant hematoma, band was in place. He appeared anxious, but with further conversation he seemed to calm down during the visit. I checked back later with nursing and they reported his symptoms had completely resolved. I do not think any have his symptoms were consistent with a neurologic event.
[2021-12-03] MEDS: amlodipine 5 mg Tablet PO (17:55)
[2021-12-03] MEDS: atorvastatin 40 mg Tablet 80 MG PO (19:41)
[2021-12-04 04:00] VITALS: BP 119/60; PULSE 54; RESP 20; TEMP 36.6; O2SAT 96
[2021-12-04 04:45] LABS: Basophils # 0.1 10^3/uL (0.0-0.1); Basophils % 0.8 %; Eosinophils # 0.2 10^3/uL (0.0-0.8); Eosinophils % 2.2 %; Hematocrit 39.8 % (42.0-52.0); Hemoglobin 13.4 g/dL (11.7-16.6); Lymphocytes % 26.8 %; Mean Corpuscular HGB Conc 33.7 g/dL (30.0-36.0); Mean Corpuscular Hemoglobin 31.6 pg (28.0-34.0); Mean Corpuscular Volume 93.9 fl (80-94); Mean Platelet Volume 9.2 fL (7.4-10.4); Monocytes # 0.9 10^3/uL (0.2-0.9); Monocytes % 8.4 %; Neutrophils # 6.78 10^3/uL (1.8-7.7); Neutrophils % 61.5 %; Nucleated Red Blood Cells % 0 %; Platelet Count 313 10^3/cmm (130-400); Red Blood Count 4.24 10^6/uL (4.1-5.3); Red Cell Distribution Width 12.8 % (12.1-15.1)
[2021-12-04 05:08] LABS: Anion Gap 14.2 (5-19); Blood Urea Nitrogen 18 mg/dL (8-23); Calcium 9.2 mg/dL (8.5-10.5); Carbon Dioxide 22 mmol/L (22-29); Chloride 105 mmol/L (98-107); Glomerular Filtration Rate 61.3 mL/min (90-130); Glucose 123 mg/dL (65-115); Osmolality Calculated 287 mOsm/kg (285-295); Potassium 4.2 mmol/L (3.5-5.1); Sodium 137 mmol/L (136-145)
[2021-12-04 06:00] VITALS: PULSE 52
[2021-12-04 08:00] VITALS: BP 143/81; PULSE 57; RESP 18; TEMP 36.8; O2SAT 96
[2021-12-04] MEDS: clopidogrel 75 mg Tablet PO (08:11)
[2021-12-04] MEDS: amlodipine 5 mg Tablet PO (08:11)
[2021-12-04] MEDS: aspirin 81 mg Chew Tablet PO (08:11)
--- NOTE | 2021-12-04 08:24 | P.DS_ITS ---
Discharge Providers Date of Admission: 12/03/21 10:06 Date of Discharge: December 04, 2021 Attending Provider at Admission: Vern Merchant M.D Attending Provider at Discharge: Vern Merchant M.D Primary Care Provider: Napoleon Keyes DO Diagnoses at Discharge Discharge Diagnosis (1) Acute ST elevation myocardial infarction (STEMI) of inferior wall: (2) Hypertension: Status: Acute (3) CKD (chronic kidney disease): Status: Acute Reason for Visit Reason for Visit: STEMI ALERT Brief History: ?61 year old male with past medical history of hypertension who has presented with a 1 hour symptoms of feeling sweaty and having dizziness.? He denies chest pain.? EKG is consistent with inferior wall ST elevation [place].? Hospital Course Hospital Course ?61 year old male with past medical history of hypertension who has presented with a 1 hour symptoms of feeling sweaty and having dizziness.? He denies chest pain.? EKG is consistent with inferior wall ST elevation [place].? Coronary angiogram was emergently performed that showed total thrombotic occlusion of proximal RCA.? He underwent successful revascularization with CAILIN x1 that resulted in resolution of ST changes. Post revascularization, patient went briefly into atrial fibrillation however converted back to normal sinus rhythm. No recurrence of A. fib. He stated is stable through out the day and was discharged next day on aspirin, Plavix, high intensity statin therapy. Beta- kierra was held given his bradycardia. Patient will get outpatient event monitor to rule out atrial fibrillation. Physical Exam Narrative: GENERAL: Patient is alert, awake and oriented x3. NECK: No jugular vein distension. [] HEENT: No cyanosis. No icterus. No pallor. [] HEART: Regular S1 and S2. No murmur, rub or gallop. [] LUNGS: Clear to auscultate bilaterally. [] ABDOMEN: Soft, nontender and nondistended. Positive bowel sounds. No guarding, rebound or tenderness. [] CENTRAL NERVOUS SYSTEM: Grossly nonfocal. [] EXTREMITIES: Lower extremities with 1+ edema bilaterally. Pulses palpable in the lower extremities, both dorsalis pedis and posterior tibial. [] Discharge Data Studies Completed and Pending Completed Studies During Hospitalization Category Date Time Status XR chest 1V portable [id number] Stat Exams 12/03/21 10:26 Completed Pending at discharge Category Date Time Status HELPER STEEL FABRICATION request for service Stat Exams 12/03/21 09:04 Ordered HELPER STEEL FABRICATION request for service Stat Exams 12/03/21 09:07 Ordered Basic Metabolic Panel AM LABS Lab 12/05/21 04:00 Ordered Basic Metabolic Panel AM LABS Lab 12/06/21 04:00 Ordered Complete Blood Count w/Auto AM LABS Lab 12/05/21 04:00 Ordered Complete Blood Count w/Auto AM LABS Lab 12/06/21 04:00 Ordered CV echo wo/w contrast [id number] Routine Ultrasound 12/03/21 10:16 Taken Radiology Impressions Chest X-Ray 12/03/21 10:26 Impression: Negative chest. Laboratory Results WBC 11.0 10^3/uL (4.0-10.0) H 12/04/21 04:36 RBC 4.24 10^6/uL (4.1-5.3) 12/04/21 04:36 Hgb 13.4 g/dL (11.7-16.6) 12/04/21 04:36 Hct 39.8 % (42.0-52.0) L 12/04/21 04:36 MCV 93.9 fl (80-94) 12/04/21 04:36 MCH 31.6 pg (28.0-34.0) 12/04/21 04:36 MCHC 33.7 g/dL (30.0-36.0) 12/04/21 04:36 RDW 12.8 % (12.1-15.1) 12/04/21 04:36 Plt Count 313 10^3/cmm (130-400) 12/04/21 04:36 MPV 9.2 fL (7.4-10.4) 12/04/21 04:36 Neut % (Auto) 61.5 % 12/04/21 04:36 Lymph % (Auto) 26.8 % 12/04/21 04:36 Griggs % (Auto) 8.4 % 12/04/21 04:36 Eos % (Auto) 2.2 % 12/04/21 04:36 Baso % (Auto) 0.8 % 12/04/21 04:36 Neut # (Auto) 6.78 10^3/uL (1.8-7.7) 12/04/21 04:36 Lymph # (Auto) 3.0 10^3/uL (0.8-4.8) 12/04/21 04:36 Griggs # (Auto) 0.9 10^3/uL (0.2-0.9) 12/04/21 04:36 Eos # (Auto) 0.2 10^3/uL (0.0-0.8) 12/04/21 04:36 Baso # (Auto) 0.1 10^3/uL (0.0-0.1) 12/04/21 04:36 Nucleated RBC % (auto) 0 % 12/04/21 04:36 Nucleated RBCs # 0.0 /100WBC 12/04/21 04:36 APTT 25.0 SECONDS (23.9-36.7) 12/03/21 08:49 Sodium 137 mmol/L (136-145) 12/04/21 04:36 Potassium 4.2 mmol/L (3.5-5.1) 12/04/21 04:36 Chloride 105 mmol/L (98-107) 12/04/21 04:36 Carbon Dioxide 22 mmol/L (22-29) 12/04/21 04:36 Anion Gap 14.2 (5-19) 12/04/21 04:36 BUN 18 mg/dL (8-23) 12/04/21 04:36 Creatinine 1.2 mg/dL (0.7-1.2) 12/04/21 04:36 GFR Calculation 61.3 mL/min (90-130) L 12/04/21 04:36 Glucose 123 mg/dL (65-115) H 12/04/21 04:36 Calculated Osmolality 287 mOsm/kg (285-295) 12/04/21 04:36 Calcium 9.2 mg/dL (8.5-10.5) 12/04/21 04:36 Troponin T Baseline 32 ng/L (0-15) H 12/03/21 08:49 NT-Pro-B Natriuret Pep 164 pg/mL (0-125) H 12/03/21 08:49 Procedures Performed Coronary angiogram with percutaneous coronary intervention Vitals Last Vital Signs Temp 97.8 F 12/04/21 04:00 Pulse 52 L 12/04/21 06:00 Resp 20 H 12/04/21 04:00 BP 119/60 12/04/21 04:00 Pulse Ox 96 03/03/22 04:00 Discharge Plan Discharge Patient Disposition: Home Condition: Stable Prescriptions: New amlodipine 5 mg Tablet 5 mg PO DAILY Qty: 90 3RF atorvastatin 40 mg Tablet 80 mg PO BEDTIME Qty: 90 3RF clopidogrel 75 mg Tablet 75 mg PO DAILY Qty: 90 3RF aspirin 81 mg tablet,chewable 81 mg PO DAILY Qty: 90 3RF Continued losartan 100 mg Tablet 100 mg PO DAILY 0RF Discontinued nebivolol [Bystolic] 10 mg Tablet 10 mg PO DAILY 0RF hydrochlorothiazide 25 mg Tablet 25 mg PO DAILY 0RF No Action hydrochlorothiazide 25 mg tablet 12.5 mg PO DAILY Qty: 45 3RF Discharge Orders: Discharge Order (Routine); Ordered 12/04/21 Ordered By: Vern Merchant Referrals: Vern Merchant M.D [Physician] - 01/13/22 2:15 pm (Located in [facility]) Charla Martinez FNP [Nurse Practitioner] - 12/11/21 1:45 pm (Located in [facility]) Napoleon Keyes DO [Primary Care Provider] - 12/08/21 10:00 am ( ) Discharge Diet: Cardiac Discharge Activity: Increase activity as tolerated Patient Instructions: Aspirin (By mouth), Amlodipine (By mouth) (Hypertenipine- 2.5, Norvasc), Atorvastatin (By mouth) (Lipitor), Clopidogrel (By mouth) (Plavix), Coronary Angioplasty (DC), Opioid Safety, Post Angiogram Home Care Instructions Discharge Attestations Time Spent in Discharge Care*: greater than 30 min Quality Metrics Clinical Quality Measures [ Acute Myocardial Infaction { Clinical Trial Participant: No; Contraindication to aspirin: None; Aspirin prescribed; Contraindication to statin: None; Statin prescribed; Contraindication to PCI: None; PCI performed;}] Coding Level of Care Code Acute Chg FW DC note Diagnoses Acute ST elevation myocardial infarction (STEMI) of inferior wall I21.19 Hypertension I10 CKD (chronic kidney disease) N18.9
--- NOTE | 2021-12-04 09:48 | PC.NURSE ---
0945: Received orders from Dr. Merchant, Director Of Corporate Responsibility to set patient up with an event monitor for 14 days. Will contact physicians office to set up appointment for patient to be put on event monitor. Will contact patient to confirm appointment for event monitor.
[2021-12-04 09:54] VITALS: BP 128/80; PULSE 57; RESP 18; TEMP 36.8; O2SAT 97
--- NOTE | 2021-12-04 09:59 | PC.NURSE ---
Discharge Note Patient discharged to home via private vehicle accompanied by spouse. All lines removed. Discharge instructions reviewed with patient and/or compliance representative dealer. Patient verbalized understanding of all teaching. Mobile pharmacy medications and/or prescriptions provided. Belongings/home medications returned.
== END 2021-12-04 10:01 | disposition home or self-care (01) | DRG 247 ==
LOC: ER 09:16 → CSU 10:07
PROVIDERS: Admitting Provider Internal Medicine; Emergency Provider Family Medicine; PCP Internal Medicine; Visit Provider Internal Medicine
PROC: 027034Z Dilation of Coronary Artery, One Artery with Drug-eluting Intraluminal Device, Percutaneous Approach (ICD-10-PCS; principal; 2021-12-03 09:00)
PROC: 027034Z Dilation of Coronary Artery, One Artery with Drug-eluting Intraluminal Device, Percutaneous Approach (ICD-10-PCS; 2021-12-03 09:00)
DX: I21.11 ST elevation (STEMI) myocardial infarction involving right coronary artery (principal); I12.9 Hypertensive chronic kidney disease with stage 1 through stage 4 chronic kidney disease, or unspecified chronic kidney disease; N18.9 Chronic kidney disease, unspecified; I48.91 Unspecified atrial fibrillation
CPT/HCPCS: 36415; 71045; 80048; 83880; 84484; 85025; 85347; 85730; 93005; 93228; 93454; 99285; C1725; C1769; C1874; C1887; C1894; C8929; C9600; J1644; J2250; J3010; J3490; J7030; Q9956; Q9967

== ENCOUNTER → 2021-12-11 14:38 | Outpatient (BNVA) | payer OTHER, SELFPAY | PROVIDERS: PCP Internal Medicine; Visit Provider Nurse Practitioner Family | DX: I25.10 Atherosclerotic heart disease of native coronary artery without angina pectoris (principal); I10 Essential (primary) hypertension | CPT/HCPCS: 80048 ==